=== PATIENT | female | born 1960 ===

== ENCOUNTER 2018-10-27 10:10 | Emergency (ER) | payer OTHER ==
[2018-10-27 10:20] VITALS: BP 148/94; PULSE 83; TEMP 98.2; O2SAT 95
--- NOTE | 2018-10-27 10:25 | C.PDOC ---
History Of Present Illness VIA TRANS 57 y/o female presents to the ED for evaluation of possible foreign body under right 3rd digit fingernail for 1 week. Denies any pain. Patient reports only discoloration, she is concerned for possible metallic foreign body. Denies other symptoms or associated injury. Time Seen by Provider: 10/27/18 10:25 Chief Complaint (Nursing): Finger,Hand,&Wrist History Per: Patient History/Exam Limitations: no limitations Onset/Duration Of Symptoms: Days (x 7) Current Symptoms Are (Timing): Still Present Past Medical History Reviewed: Historical Data, Nursing Documentation, Vital Signs Vital Signs: Last Vital Signs Temp 98.2 F 10/27/18 10:18 Pulse 83 10/27/18 10:18 Resp 18 10/27/18 10:18 BP 148/94 H 10/27/18 10:18 Pulse Ox 95 10/27/18 10:18 Family History: States: No Known Family Hx - Social History Hx Tobacco Use: No Hx Alcohol Use: No Hx Substance Use: No Review Of Systems Except As Marked, All Systems Reviewed And Found Negative. Constitutional: Negative for: Fever, Chills Musculoskeletal: Positive for: Other (+ discoloration to right 3rd digit nail). Negative for: Hand Pain Skin: Negative for: Rash, Other (drainage) Neurological: Negative for: Weakness, Numbness Physical Exam - Physical Exam Appears: Well, Non-toxic, No Acute Distress Skin: Warm, Dry, No Rash Head: Atraumatic, Normacephalic Eye(s): bilateral: Normal Inspection Neck: Normal ROM Chest: Symmetrical Respiratory: No Accessory Muscle Use, Other (NARD) Extremity: Normal ROM (with AROM of digits), No Tenderness, No Swelling, Other (Right 3rd digit with linear discoloration the entire length, subungual; Nontender, Nail is intact, No erythema or edema) Pulses: Left Radial: Normal, Right Radial: Normal Neurological/Psych: Oriented x3, Normal Speech, Normal Motor, Normal Sensation ED Course And Treatment O2 Sat by Pulse Oximetry: 95 Pulse Ox Interpretation: Normal - Other Rad X-Ray Hand X-Ray: Interpreted by Me (NEG) Interpretation: No FB Progress Note: X-ray taken of right hand 3rd digit Disposition Counseled Patient/Family Regarding: Studies Performed, Diagnosis, Need For Followup - Disposition Referrals: Natty Parekh MD [Staff Provider] - [facility] [Outside] [facility] [Outside] Disposition: HOME/ ROUTINE Disposition Time: 10:41 Condition: GOOD Additional Instructions: SEGUIR CON EL ESPECIALISTA DE KHRIS Y / O LA CLNICA. REGRESAR SI AUMENTA EL TAMAO, ENFERMEDAD, DOLOR O DESCARGA. Instructions: Common Finger Injuries (DC) Forms: [employer] (Arabic) Print Language: [place] - Clinical Impression Clinical Impression: Hematoma, subungual, finger - Scribe Statement The provider has reviewed the documentation as recorded by the Scribe Aletha Mariee Provider Attestation: All medical record entries made by the Scribe were at my direction and personally dictated by me. I have reviewed the chart and agree that the record accurately reflects my personal performance of the history, physical exam, medical decision making, and the department course for this patient. I have also personally directed, reviewed, and agree with the discharge instructions and disposition.
[2018-10-27] MEDS ORDERED: Tetanus/Diphtheria Toxoids 0.5 ml Syringe IM ONE ×2 (10:41→10:49)
[2018-10-27 10:52] VITALS: RESP 20
--- NOTE | 2018-10-27 13:10 | RAD ---
Date of service: 10/27/2018 PROCEDURE: Right middle finger radiographs. HISTORY: PAIN RO FB COMPARISON: None. TECHNIQUE: AP radiograph of the right hand, as well as spot oblique and lateral images of index finger were obtained. 3 views obtained. FINDINGS: RIGHT MIDDLE FINGER: Right middle finger unremarkable without acute displaced fracture identified. Remainder of the right hand (as seen on the AP view) grossly unremarkable. JOINTS: No dislocation. SOFT TISSUES: Unremarkable. No evidence of radiopaque foreign body. OTHER FINDINGS: None. IMPRESSION: No acute displaced fracture identified.
== END 2018-10-27 10:50 | disposition home or self-care (01) ==
LOC: C.ER 10:10
DX: S60.031A Contusion of right middle finger without damage to nail, initial encounter (principal); X58.XXXA Exposure to other specified factors, initial encounter; Z23 Encounter for immunization